=== PATIENT | male | born 1960 | race Caucasian/White ===

== ENCOUNTER 2023-09-14 04:20 | Inpatient (IN) | payer OTHER ==
[2023-09-14] VITALS (41 sets, daily range): BP systolic 58–148; BP diastolic 26–82; PULSE 36–84; RESP 16–22; TEMP 95–98.2; O2SAT 98–100
[~2023-09-14] VITALS: Ht 175.3 cm; Wt 76.7 kg
[2023-09-14] MEDS ORDERED: cefTRIAXone 1,000 MG in DEXT 5% MINI-BAG PLUS 50 ML IV ONE (04:30)
[2023-09-14] MEDS ORDERED: NACL 0.9% 1,000 ML IV ONE ×3 (04:50→22:35)
[2023-09-14 04:58] LABS: HEMATOCRIT 38.8 % (36-52); HEMOGLOBIN 12.1 g/dL (12.0-18.0); MEAN CORPUSCULAR HEMOGLOBIN 29 pg (27-31); MEAN CORPUSCULAR HGB CONC 31 g/dL (33-37); MEAN CORPUSCULAR VOLUME 91.6 fL (80-94); PLATELET COUNT (AUTO) 274 K/uL (140-450); RED BLOOD CELL COUNT(AUTO) 4.24 MIL/uL (4.20-6.10); RED CELL DISTRIBUTION WIDTH 13.9 % (11.6-13.7)
[2023-09-14] MEDS ORDERED: cefTRIAXone 1,000 MG VIAL ONE (05:04)
[2023-09-14 05:05] LABS: WHITE BLOOD COUNT (AUTO) 51.3 K/uL (4.8-10.8)
[2023-09-14 05:14] LABS: ALBUMIN 3.9 g/dL (3.4-5.0); ANION GAP 36.1 (8-16); CALCIUM 9.5 mg/dL (8.5-10.1); CREATININE 2.4 mg/dL (0.6-1.3); TOTAL BILIRUBIN 1.3 mg/dL (0.0-1.0); TOTAL PROTEIN, SERUM 7.1 g/dL (6.4-8.2)
[2023-09-14 05:17] LABS: CARBON DIOXIDE 9.9 mmol/L (21-32)
[2023-09-14 05:21] LABS: APPEARANCE,URINE CLEAR (CLEAR); BILIRUBIN,URINE NEGATIVE (NEGATIVE); BLOOD, URINE NEGATIVE (NEGATIVE); COLOR,URINE YELLOW (YELLOW); LEUKOCYTE ESTERASE ,URINE NEGATIVE (NEGATIVE); NITRITE, URINE NEGATIVE (NEGATIVE); PROTEIN,URINE 1+ (NEGATIVE); UGLUCOSE NEGATIVE (NEGATIVE)
[2023-09-14 05:21] LABS: LIPASE 32 U/L (16-77)
[2023-09-14 05:25] LABS: LYMPHOCYTES % (MANUAL) 5 % (20-46); MONOCYTES % (MANUAL) 5 % (5-12)
[2023-09-14] MEDS ORDERED: METF-1139 PO (05:49)
[2023-09-14] MEDS ORDERED: MULT-2173 PO (05:49)
[2023-09-14] MEDS ORDERED: ASPI-1822 PO (05:49)
[2023-09-14] MEDS ORDERED: ATOR40TA PO (05:49)
[2023-09-14] MEDS ORDERED: ACET-2619 PO (05:49)
[2023-09-14] MEDS ORDERED: CLON-1170 PO (05:49)
[2023-09-14] MEDS ORDERED: AMLO-272 PO (05:49)
[2023-09-14] MEDS ORDERED: ZINC100T8 PO (05:49)
[2023-09-14] MEDS ORDERED: MELA5TAB6 PO (05:49)
[2023-09-14 06:04] LABS: LACTIC ACID 24.6 mmol/L (0.4-2.0)
[2023-09-14] MEDS ORDERED: LORazepam 2 MG/ML VIAL IVP ONE (06:45)
[2023-09-14 07:24] LABS: BLOOD GAS HCO3 3.6 mmol/L (22-26); BLOOD GAS PCO2 18.6 mmHg (35-45); BLOOD GAS PH 6.903 (7.35-7.45); BLOOD GAS PO2 149.4 mmHg (75-100)
[2023-09-14 07:25] LABS: BLOOD GAS O2 SAT% 98.3 % (92.0-98.5)
[2023-09-14] MEDS ORDERED: DEXTROSE 50% 50 ML SYR IVP ONE ×2 (07:48→07:50)
[2023-09-14] MEDS ORDERED: NOREPINEPHRINE 4 MG in DEXTROSE 5% 250 ML IV ONE (08:00)
[2023-09-14] MEDS ORDERED: NOREPINEPHRINE 4 MG/4 ML VIAL IV ONE ×5 (08:05→17:28)
[2023-09-14] MEDS ORDERED: SODIUM BICARBONATE 8.4% PFS 50 MEQ/50 ML SYR IVP ONE ×2 (08:17→22:38)
[2023-09-14] MEDS ORDERED: VANCOMYCIN PER PHARMACY MC PRN (08:20)
[2023-09-14] MEDS ORDERED: MORPHINE SULFATE 4 MG/ML SYR IVP PRN (08:20)
[2023-09-14] MEDS ORDERED: MAG SULF 2000 MG/WATER PREMIX 50 ML IV PRN (08:20)
[2023-09-14] MEDS ORDERED: ONDANSETRON 4 MG/2 ML VIAL IVP PRN (08:20)
[2023-09-14] MEDS ORDERED: KCL 20 MEQ IN 100 mL PREMIX 200 ML IV PRN (08:20)
[2023-09-14] MEDS ORDERED: POTASSIUM CHLORIDE 10 MEQ TABER PO PRN (08:20)
[2023-09-14] MEDS ORDERED: MAGNESIUM OXIDE 400 MG TAB PO PRN (08:20)
[2023-09-14] MEDS ORDERED: HYDROcodone/APAP 5/325 MG 1 TAB TAB PO PRN (08:20)
[2023-09-14] MEDS ORDERED: ACETAMINOPHEN 325 MG TAB PO PRN (08:20)
[2023-09-14] MEDS ORDERED: NACL 0.9% 1,000 ML IV SCH (08:20)
[2023-09-14] MEDS ORDERED: ROCURONIUM 50 MG/5 ML VIAL IV ONE ×2 (08:45→11:00)
[2023-09-14] MEDS ORDERED: ETOMIDATE 20 MG/10 ML VIAL IVP ONE ×2 (08:45→11:00)
[2023-09-14] MEDS ORDERED: INTUBATION KIT MC ONE (08:48)
[2023-09-14] MEDS ORDERED: VANCOMYCIN 1.25GM PREMIX 250 ML IV SCH (09:00)
[2023-09-14] MEDS ORDERED: PROPOFOL 1000 MG/100 ML PREMIX 100 ML IV ONE (09:05)
[2023-09-14 10:42] LABS: BLOOD GAS HCO3 3.5 mmol/L (22-26); BLOOD GAS PCO2 30.7 mmHg (35-45); BLOOD GAS PO2 568.6 mmHg (75-100)
[2023-09-14 10:43] LABS: BLOOD GAS BASE EXCESS -32.3 mmol/L (-2.0-2.0); BLOOD GAS O2 SAT% 99.7 % (92.0-98.5)
[2023-09-14] MEDS: VASOPRESSIN 20 UNITS in NACL 0.9% 250 ML IV PRN ×2 (11:03→21:27)
[2023-09-14] MEDS ORDERED: NOREPINEPHRINE 4 MG in DEXTROSE 5% 250 ML IV PRN (11:15)
[2023-09-14] MEDS ORDERED: SODIUM BICARBONATE 8.4% PFS 50 MEQ/50 ML SYR IVP SCH (11:22)
[2023-09-14] MEDS ORDERED: fentaNYL citrate 1 MG in NACL 0.9% 80 ML IV PRN ×2 (11:30→12:30)
[2023-09-14] MEDS: SODIUM BICARBONATE 8.4% 100 MEQ in DEXT 5% / NACL 0.45% 1,000 ML IV SCH (11:45)
[2023-09-14] MEDS: VANCOMYCIN HCL 25 MG/ML SOLN NG SCH ×2 (12:00→17:29)
[2023-09-14] MEDS: PIPERACILLIN/TAZOBACTAM 3.375 GM in DEXTROSE 5% 50 ML IV SCH ×2 (12:00→17:29)
[2023-09-14] MEDS ORDERED: VANCOMYCIN 1,000 MG VIAL NG SCH (12:00)
[2023-09-14] MEDS: metroNIDAZOLE 500 MG/NS PREMIX 100 ML IV SCH ×2 (13:00→21:28)
[2023-09-14] MEDS: MAGNESIUM HYDROXIDE 2400 MG/30 ML UDC PO PRN (17:30)
[2023-09-14] MEDS ORDERED: EPINEPHrine 1 mg/mL 1 MG in DEXTROSE 5% 250 ML IV PRN (19:50)
[2023-09-14] MEDS ORDERED: DOPamine 400 MG/D5W PREMIX 250 ML IV ONE (20:02)
[2023-09-14] MEDS: DOPamine 400 MG/D5W PREMIX 250 ML IV PRN (21:17)
[2023-09-14] MEDS: NOREPINEPHRINE 16 MG in DEXTROSE 5% 250 ML IV PRN (21:24)
[2023-09-14] MEDS: HYDROCORTISONE NA SUCC 100 MG/2 ML VIAL IV SCH (21:31)
[2023-09-14] MEDS ORDERED: EPINEPHrine 1 MG/ML AMP ONE ×3 (22:27→23:55)
[2023-09-14] MEDS: EPINEPHrine 1 mg/mL 3 MG in DEXTROSE 5% 250 ML IV PRN ×2 (22:46→23:59)
[2023-09-15] VITALS (39 sets, daily range): BP systolic 61–112; BP diastolic 30–64; PULSE 32–89; RESP 16–22; TEMP 96.5–96.9; O2SAT 89–100
[2023-09-15] MEDS: NOREPINEPHRINE 16 MG in DEXTROSE 5% 250 ML IV PRN ×5 (00:14→17:20)
[2023-09-15] MEDS: SODIUM BICARBONATE 8.4% 100 MEQ in DEXT 5% / NACL 0.45% 1,000 ML IV SCH ×2 (00:14→09:57)
[2023-09-15] MEDS: PIPERACILLIN/TAZOBACTAM 3.375 GM in DEXTROSE 5% 50 ML IV SCH ×4 (00:20→17:28)
[2023-09-15] MEDS: VANCOMYCIN HCL 25 MG/ML SOLN NG SCH ×4 (00:21→18:00)
[2023-09-15] MEDS ORDERED: EPINEPHrine 1 MG/ML AMP ONE ×7 (00:48→10:59)
[2023-09-15] MEDS: EPINEPHrine 1 mg/mL 3 MG in DEXTROSE 5% 250 ML IV PRN ×4 (00:56→06:39)
[2023-09-15] MEDS: DOPamine 400 MG/D5W PREMIX 250 ML IV PRN ×4 (01:19→14:20)
[2023-09-15] MEDS ORDERED: NOREPINEPHRINE 4 MG/4 ML VIAL IV ONE ×2 (03:18→09:11)
[2023-09-15] MEDS: EPINEPHrine 1 mg/mL 6 MG in DEXTROSE 5% 250 ML IV PRN ×3 (04:40→08:40)
[2023-09-15] MEDS: MAGNESIUM HYDROXIDE 2400 MG/30 ML UDC PO PRN (04:48)
[2023-09-15] MEDS: metroNIDAZOLE 500 MG/NS PREMIX 100 ML IV SCH ×2 (04:48→13:18)
[2023-09-15] MEDS: HYDROCORTISONE NA SUCC 100 MG/2 ML VIAL IV SCH ×2 (04:49→13:18)
[2023-09-15 05:38] LABS: BASOPHILS # (AUTO) 0.1 K/uL (0.00-0.22); BASOPHILS % (AUTO) 0.3 % (0.0-2.0); EOSINOPHILS # (AUTO) 0.1 K/uL (0-0.4); EOSINOPHILS % (AUTO) 0.3 % (0.0-4.0); HEMATOCRIT 34.6 % (36-52); HEMOGLOBIN 9.5 g/dL (12.0-18.0); LYMPHOCYTES # (AUTO) 8.4 K/uL (2.0-11.5); LYMPHOCYTES % (AUTO) 24.4 % (20.5-51.1); MEAN CORPUSCULAR HEMOGLOBIN 29 pg (27-31); MEAN CORPUSCULAR HGB CONC 28 g/dL (33-37); MEAN CORPUSCULAR VOLUME 104.7 fL (80-94); MONOCYTES # (AUTO) 0.9 K/uL (0.8-1.0); MONOCYTES % (AUTO) 2.6 % (1.7-9.3); NEUTROPHILS % (AUTO) 72.4 % (42.2-75.2); PLATELET COUNT (AUTO) 208 K/uL (140-450)
[2023-09-15 05:45] LABS: WHITE BLOOD COUNT (AUTO) 34.6 K/uL (4.8-10.8)
[2023-09-15] MEDS: VASOPRESSIN 20 UNITS in NACL 0.9% 250 ML IV PRN ×2 (08:06→17:29)
[2023-09-15] MEDS ORDERED: PANTOPRAZOLE 40 MG INJ VIAL IVP SCH (09:00)
[2023-09-15] MEDS ORDERED: VANCOMYCIN 1,000 MG in DEXTROSE 5% 250 ML IV SCH (11:00)
[2023-09-15] MEDS: EPINEPHrine 1 mg/mL 10 MG in DEXTROSE 5% 250 ML IV PRN ×3 (11:03→17:19)
[2023-09-15] MEDS ORDERED: SODIUM BICARBONATE 8.4% PFS 50 MEQ/50 ML SYR IVP SCH (14:13)
[2023-09-15] MEDS ORDERED: PHENYLEPHRINE 100 MG in NACL 0.9% 250 ML IV PRN (14:15)
[2023-09-15 15:12] LABS: ALBUMIN 1.9 g/dL (3.4-5.0); CREATININE 2.9 mg/dL (0.6-1.3); POTASSIUM 5.7 mmol/L (3.5-5.1); TOTAL BILIRUBIN 1.3 mg/dL (0.0-1.0); TOTAL PROTEIN, SERUM 3.8 g/dL (6.4-8.2)
[2023-09-15 15:39] LABS: ANION GAP 43.1 (8-16); CARBON DIOXIDE 3.6 mmol/L (21-32)
== END 2023-09-15 18:24 | DRG 720 ==
LOC: MED 04:20 → MIC 08:22
PROVIDERS: ADMIT Hospitalist; ATTEND Hospitalist
PROC: 02HV33Z Insertion of Infusion Device into Superior Vena Cava, Percutaneous Approach (ICD-10-PCS; principal; 2023-09-14)
PROC: 5A1945Z Respiratory Ventilation, 24-96 Consecutive Hours (ICD-10-PCS; 2023-09-14)
PROC: B548ZZA Ultrasonography of Superior Vena Cava, Guidance (ICD-10-PCS; 2023-09-14)
PROC: 06HY33Z Insertion of Infusion Device into Lower Vein, Percutaneous Approach (ICD-10-PCS; 2023-09-14)
PROC: B54CZZA Ultrasonography of Left Lower Extremity Veins, Guidance (ICD-10-PCS; 2023-09-14)
PROC: 0BH17EZ Insertion of Endotracheal Airway into Trachea, Via Natural or Artificial Opening (ICD-10-PCS; 2023-09-14)
DX: A41.9 Sepsis, unspecified organism (principal); J96.01 Acute respiratory failure with hypoxia; R65.21 Severe sepsis with septic shock; G93.41 Metabolic encephalopathy; A04.72 Enterocolitis due to Clostridium difficile, not specified as recurrent; E87.20 Acidosis, unspecified; E11.9 Type 2 diabetes mellitus without complications; E78.5 Hyperlipidemia, unspecified; I10 Essential (primary) hypertension; Z66 Do not resuscitate; N39.0 Urinary tract infection, site not specified; E80.6 Other disorders of bilirubin metabolism; Z86.73 Personal history of transient ischemic attack (TIA), and cerebral infarction without residual deficits; Z79.82 Long term (current) use of aspirin; Z79.899 Other long term (current) drug therapy
CPT/HCPCS: 31500; 36415; 36556; 36600; 70450; 71045; 74018; 80053; 80202; 81003; 82803; 82948; 83605; 83690; 83735; 83880; 84484; 85025; 87040; 87081; 87086; 93005; 94003; 96365; 96375; 99291; C9113; J0171; J0696; J1265; J1644; J1720; J2060; J2370; J2543; J3010; J3370; J3372; J3490; J7030; J7060; Q0092